=== PATIENT | female | born 1995 | race Caucasian/White ===

== ENCOUNTER 2018-11-14 12:23 | Emergency (ER) | payer MEDICAID ==
[~2018-11-14] VITALS: Ht 160 cm; Wt 55.3 kg
[~2018-11-14 12:23] MED LIST: BISM262T9 PO; DIVA500T4 PO; IBUP-1222 PO; IBUP-1223 PO; OXYC-302 PO; PREN1TAB60 PO
[2018-11-14 12:27] VITALS: BP 123/87
[2018-11-14] MEDS ORDERED: ONDANSETRON ODT 4 MG ONE (13:28)
[2018-11-14] MEDS ORDERED: HYDROcodone/APAP 5/325 TABLET ONE (13:28)
[2018-11-14] MEDS ORDERED: HYDROcodone/APAP 5/325 TABLET PO ONE (13:30)
[2018-11-14] MEDS ORDERED: ONDANSETRON ODT 4 MG PO ONE (13:30)
== END 2018-11-14 14:22 | disposition home or self-care (01) ==
LOC: ED 14:16
DX: K12.2 Cellulitis and abscess of mouth (principal)
CPT/HCPCS: 40800; 99284; Q0162

== ENCOUNTER 2019-04-29 16:28 | Emergency (ER) | payer MEDICAID ==
[~2019-04-29] VITALS: Ht 160 cm; Wt 64.7 kg
[2019-04-29 16:45] VITALS: BP 123/81
--- NOTE | 2019-04-29 17:41 | NUR ---
FIRST CONTACT WITH PT. PT HAD GLF 0530 TODAY, FELL WHILE RUNNING IN SNOW. DENIES HITTING HEAD BUT VERBALIZES "I BLACKED OUT" PER PT LOC DURATION 1MIN. C/O RIGHT SIDE ABD AND RIB PAIN. +PREG TEST 03/12, "I'VE BEEN BLEEDING NON-STOP SINCE A WEEK AFTER THAT. "12 SUPPER TAMPONS/DAY" PT DENIES VERGINAL DISCHARGE AT THIS TIME. PT'S AOX4. RESPS EVEN AND UNLABORED. PT STATES "I DON'T KNOW I'M OR NOT." BP/SPO2 MONITORS IN PLACE. CALL LIGHT WITHIN REACH.
--- NOTE | 2019-04-29 18:11 | NUR ---
PT TO US NOW.
--- NOTE | 2019-04-29 18:45 | NUR ---
REPORT GIVEN TO HANSEL TOSCANO.
== END 2019-04-29 18:55 | disposition home or self-care (01) ==
LOC: ED 17:05
DX: G89.11 Acute pain due to trauma (principal); M25.551 Pain in right hip; F17.200 Nicotine dependence, unspecified, uncomplicated; W01.0XXA Fall on same level from slipping, tripping and stumbling without subsequent striking against object, initial encounter; Y93.89 Activity, other specified; Y92.009 Unspecified place in unspecified non-institutional (private) residence as the place of occurrence of the external cause; Y99.8 Other external cause status
CPT/HCPCS: 36415; 76856; 84703; 86901; 99284

== ENCOUNTER 2020-01-08 12:51 | Emergency (ER) | payer MEDICAID ==
[~2020-01-08] VITALS: Ht 160 cm; Wt 65.0 kg
--- NOTE | 2020-01-08 13:14 | NUR ---
no answer x1
--- NOTE | 2020-01-08 13:56 | NUR ---
Pt laying prone on gurney with R leg off gurney. Pt stated that it was the most comfortable position to lay in. Pt sts pain but no needs at this time. Call light within reach bed rails up x 1 bed locked in lowest position.
[2020-01-08] MEDS ORDERED: ACETAMINOPHEN 325 MG TABLET PO ONE (14:00)
[2020-01-08] MEDS ORDERED: ACETAMINOPHEN 325 MG TABLET ONE (14:02)
[2020-01-08 14:16] LABS: BASOPHILS # (AUTO) 0.01 x10^3/uL (0-0.1); BASOPHILS % (AUTO) 0 % (0-1); EOSINOPHILS % (AUTO) 1 % (1-7); LYMPHOCYTES # (AUTO) 1.17 x10^3/uL (1-3.4); LYMPHOCYTES % (AUTO) 10 % (22-44); MD NO; MEAN CORPUSCULAR HEMOGLOBIN 31.6 pg (27.0-34.8); MEAN CORPUSCULAR HGB CONC 33.6 g/dL (32.4-35.8); MEAN CORPUSCULAR VOLUME 94.3 fL (80-100); MEAN PLATELET VOLUME 8.2 fL (7.4-10.4); MONOCYTES # (AUTO) 0.58 x10^3/uL (0.2-0.8); MONOCYTES % (AUTO) 5 % (2-9); NEUTROPHILS # (AUTO) 10.02 x10^3/uL (1.8-6.8); NEUTROPHILS % (AUTO) 84 % (42-75); PLATELET COUNT 254 x10^3/uL (130-400); RED BLOOD COUNT 4.84 x10^6/uL (3.82-5.3)
[2020-01-08 14:26] LABS: ALBUMIN 4.1 g/dL (3.4-5.0); ANION GAP 5 mmol/L (5-15); CALCIUM 8.6 mg/dL (8.5-10.1); CHLORIDE 108 mmol/L (98-107); CREATININE 0.95 mg/dL (0.55-1.02)
[2020-01-08 14:32] LABS: HCG UR SG 1.021 (1.003-1.030)
[2020-01-08 14:47] LABS: MICROSCOPIC INDICATED
--- NOTE | 2020-01-08 15:19 | NUR ---
Pt resting comfortably in [place], bed locked in lowest position side rails up x 1 call light within reach, pt sts no needs at this time, will continue to monitor.
--- NOTE | 2020-01-08 15:30 | NUR ---
Pt in CT scan.
[2020-01-08 16:26] VITALS: BP 111/63
[2020-01-08] MEDS ORDERED: KETOROLAC 30 MG/1 ML IM ONE (17:30)
[2020-01-08] MEDS ORDERED: KETOROLAC 60 MG/2 ML ONE (17:36)
== END 2020-01-08 18:11 ==
LOC: ED 17:31
DX: S61.254A Open bite of right ring finger without damage to nail, initial encounter (principal); S00.11XA Contusion of right eyelid and periocular area, initial encounter; S30.0XXA Contusion of lower back and pelvis, initial encounter; S50.811A Abrasion of right forearm, initial encounter; S70.311A Abrasion, right thigh, initial encounter; S80.811A Abrasion, right lower leg, initial encounter; S70.312A Abrasion, left thigh, initial encounter; S50.812A Abrasion of left forearm, initial encounter; S80.812A Abrasion, left lower leg, initial encounter; S09.90XA Unspecified injury of head, initial encounter; R55 Syncope and collapse; M54.9 Dorsalgia, unspecified; Y04.1XXA Assault by human bite, initial encounter; Y93.89 Activity, other specified; Y92.098 Other place in other non-institutional residence as the place of occurrence of the external cause; Y99.8 Other external cause status
CPT/HCPCS: 36415; 70450; 70486; 72125; 72190; 72220; 73080; 73140; 73564; 80048; 81001; 81025; 82040; 85025; 87086; 96372; 99285; J1885

== ENCOUNTER 2020-12-01 16:08 | Emergency (ER) | payer MEDICAID ==
[~2020-12-01] VITALS: Ht 160 cm; Wt 66.9 kg
[~2020-12-01 16:08] MED LIST changes: -OXYC-302 PO; +OXYC1TAB14 PO
[2020-12-01 16:14] VITALS: BP 126/71
== END 2020-12-01 18:18 | disposition home or self-care (01) ==
LOC: ED 16:38
DX: R20.2 Paresthesia of skin (principal)
CPT/HCPCS: 99283